=== PATIENT | male | born 1955 | race Caucasian/White ===

== ENCOUNTER → 2016-12-13 | Outpatient (CLI) | payer BC ==
--- NOTE | 2016-12-13 19:35 | HKNOTE ---
DATE OF SERVICE: The patient has severe degenerative osteoarthritis of his right hip. He comes in requesting repeat cortisone injection into the right hip. The last injection was given to him in July. It gave h im excellent relief. He is not yet ready to consider a hip replacement operation. MANAGEMENT: Under sterile conditions, given injection of 2 mL of Kenalog and 6 mL of 2% lidocaine i nto the right hip, and he will be seen again as necessary. Dictated By: BE KAUR/JOSELYN Conf#: [id number] DID#: [id number]
== END | disposition home or self-care (01) ==
LOC: HKI 14:50
DX: M16.11 Unilateral primary osteoarthritis, right hip (principal)
CPT/HCPCS: 20610; G0463

== ENCOUNTER → 2017-03-19 | Outpatient (CLI) | payer BC | END | disposition home or self-care (01) | LOC: HKI 16:09 | DX: M16.11 Unilateral primary osteoarthritis, right hip (principal) | CPT/HCPCS: 20610; G0463 ==

== ENCOUNTER → 2017-07-18 | Outpatient (CLI) | payer BC ==
--- NOTE | 2017-07-18 13:45 | RADRPT ---
PROCEDURE: XR Bilateral Hips. CLINICAL INDICATION: Bilateral hip pain. TECHNIQUE: Four views. Frontal and lateral right hip. Frontal and lateral left hip. COMPARISON: No prior studies are available for comparison. FINDINGS: There is no fracture or dislocation. The soft tissues are normal. There are degenerative changes of the right hip with joint space narrowing and osteophytes. There ar e degenerative changes of the left hip osteophytes. There is no lytic or blastic lesion. Clips are present in the right side of the pelvis. IMPRESSION: 1. Moderate degenerative changes of the right hip. 2. Mild degenerative changes of the left hip. 3. Surgical clips in the right side of the pelvis. RPTAT: QQ .Frank Millan MD, MD Date Time Electronically viewed and signed by .Frank Millan MD, MD on 07/18/2017 13:44 .R/
--- NOTE | 2017-07-19 03:21 | HKNOTE ---
DATE OF SERVICE: The patient comes in for repeat cortisone injection into his right hip. The last cortisone injectio n was given on 03/19/2017 and gave excellent relief of his pain. He requests a repeat injection. PHYSICAL EXAMINATION: VITAL SIGNS: Blood pressure 125/75, temperature 98.5. EXAMINATION OF THE RIGHT HIP: He has limited range of motion with quite marked pain at the limits o f motion. Flexion is to 105 degrees, external rotation 30 degrees. MANAGEMENT: Under sterile conditions, the patient's right hip was injected with a mixture of 2 mL o f Kenalog and 4 mL of 2% lidocaine. Note that after waiting 5 minutes to allow the anesthetic to work putting his right hip through a fo rced range of motion could not reproduce any pain. The patient will be seen again as necessary for further treatment. Dictated By: BE KAUR/JOSELYN Conf#: [id number] DID#: [id number]
== END | disposition home or self-care (01) ==
LOC: HKI 09:46
DX: M25.551 Pain in right hip (principal)
CPT/HCPCS: 20610; 73522; G0463

== ENCOUNTER → 2017-10-18 | Outpatient (CLI) | END | disposition home or self-care (01) ==

== ENCOUNTER 2017-12-03 05:30 | Inpatient (IN) | END 2017-12-04 18:25 | disposition home health service (06) | DRG 470 ==

== ENCOUNTER → 2017-12-20 | Outpatient (CLI) | END | disposition home or self-care (01) ==

== ENCOUNTER → 2018-01-13 | Outpatient (CLI) | END | disposition home or self-care (01) ==

== ENCOUNTER → 2018-03-31 | Outpatient (CLI) | END | disposition home or self-care (01) ==